=== PATIENT | female | born 1950 ===

== ENCOUNTER 2018-02-21 08:33 | Outpatient (CLI) | payer OTHER | END 2018-02-21 08:37 | disposition home or self-care (01) | LOC: RAD 08:33 | DX: I10 Essential (primary) hypertension (principal) ==

== ENCOUNTER 2018-02-21 12:50 | Outpatient (CLI) | payer OTHER | END 2018-02-21 13:03 | disposition home or self-care (01) | LOC: NUCLEAR 12:50 | DX: M81.0 Age-related osteoporosis without current pathological fracture (principal); Z13.820 Encounter for screening for osteoporosis ==

== ENCOUNTER → 2021-08-03 | Outpatient (CLI) | payer OTHER | END | disposition home or self-care (01) | LOC: MRI 08-02 10:15 | PROVIDERS: ATTEND Internal Medicine | DX: M48.061 Spinal stenosis, lumbar region without neurogenic claudication (principal); M54.5 Low back pain | CPT/HCPCS: 72148 ==

== ENCOUNTER 2023-07-05 12:12 | Outpatient (CLI) | payer OTHER | END 2023-07-05 12:18 | disposition home or self-care (01) | LOC: RAD 12:12 | PROVIDERS: ATTEND Internal Medicine | DX: M54.50 Low back pain, unspecified (principal) ==

== ENCOUNTER 2024-08-30 08:12 | Outpatient (CLI) | payer OTHER | END 2024-08-30 08:25 | disposition home or self-care (01) | LOC: MRI 08:12 | PROVIDERS: ATTEND Orthopaedic Surgery | DX: M25.561 Pain in right knee (principal); M25.562 Pain in left knee | CPT/HCPCS: 73721 ==